=== PATIENT | male | born 1960 | race American Indian/Alaskan Native ===

== ENCOUNTER 2017-03-01 15:14 | Emergency (ER) | payer OTHER ==
[~2017-03-01] VITALS: Ht 160 cm; Wt 68.0 kg
== END 2017-03-01 17:06 | disposition home or self-care (01) ==
LOC: ED 15:14
DX: S20.221A Contusion of right back wall of thorax, initial encounter (principal); Z88.8 Allergy status to other drugs, medicaments and biological substances; Z98.890 Other specified postprocedural states; W01.0XXA Fall on same level from slipping, tripping and stumbling without subsequent striking against object, initial encounter
CPT/HCPCS: 71020; 99283

== ENCOUNTER 2017-09-09 23:27 | Emergency (ER) | payer OTHER ==
[~2017-09-09] VITALS: Ht 160 cm; Wt 68.0 kg
[2017-09-10] MEDS ORDERED: NORCO 5-325 TA1 EACH PO (02:17)
== END 2017-09-10 02:37 | disposition home or self-care (01) ==
LOC: ED 23:27
DX: S49.91XA Unspecified injury of right shoulder and upper arm, initial encounter (principal); Z88.6 Allergy status to analgesic agent; W01.0XXA Fall on same level from slipping, tripping and stumbling without subsequent striking against object, initial encounter
CPT/HCPCS: 73030; 99283